=== PATIENT | male | born 2000 | race Caucasian/White ===

== ENCOUNTER 2020-07-23 15:25 | Emergency (ER) | payer MEDICAID ==
[~2020-07-23] VITALS: Ht 182.9 cm; Wt 113.2 kg
[2020-07-23 15:39] VITALS: BP 145/88
[2020-07-23] MEDS ORDERED: ARIP2TAB27 PO (15:46)
== END 2020-07-23 16:31 | disposition left against medical advice (07) ==
LOC: EMS 15:25
DX: T40.411A Poisoning by fentanyl or fentanyl analogs, accidental (unintentional), initial encounter (principal); F32.9 Major depressive disorder, single episode, unspecified; Z79.899 Other long term (current) drug therapy; Y92.89 Other specified places as the place of occurrence of the external cause
CPT/HCPCS: 71045; 99283

== ENCOUNTER 2020-09-19 07:28 | Emergency (ER) | payer MEDICAID ==
[~2020-09-19] VITALS: Ht 185.4 cm; Wt 109.1 kg
[~2020-09-19 07:28] MED LIST: ARIP2TAB27 PO
[2020-09-19 07:45] VITALS: BP 142/67
== END 2020-09-19 07:55 | disposition home or self-care (01) ==
LOC: EMS 07:28
DX: S09.90XA Unspecified injury of head, initial encounter (principal); F11.90 Opioid use, unspecified, uncomplicated; F32.9 Major depressive disorder, single episode, unspecified; W20.8XXA Other cause of strike by thrown, projected or falling object, initial encounter; Y93.89 Activity, other specified; Y92.89 Other specified places as the place of occurrence of the external cause; Y99.8 Other external cause status
CPT/HCPCS: 99281; Z7502